=== PATIENT | female | born 1935 | race African-American/Black ===

== ENCOUNTER 2019-04-18 22:08 | Inpatient (IN) | payer MEDICARE, OTHER ==
[~2019-04-18] VITALS: Ht 154.9 cm; Wt 55.8 kg
--- NOTE | 2019-04-18 22:35 | NUR ---
PT BIB PRIVATE AMBULANCE FROM [facility] C/O INCREASE AGITATION. PT CALM AND RESTING IN BED 11. NAD NOTED. RESP EVEN AND UNLABORED. PT AOX2. PT ON MONITOR IN BED 11. WILL CONTINUE TO MONITOR.
[2019-04-18 22:45] LABS: BASOPHILS % (AUTO) 0.2 % (0.0-2.0); EOSINOPHILS % (AUTO) 7.3 % (0.0-6.0); HEMATOCRIT 32 % (33-45); HEMOGLOBIN 10.4 g/dL (11.5-14.8); LYMPHOCYTES # (AUTO) 0.8 /CMM (0.8-4.8); LYMPHOCYTES % (AUTO) 33.5 % (20.0-44.0); MEAN CORPUSCULAR HGB CONC 32 g/dl (31.0-36.0); MEAN CORPUSCULAR VOLUME 88 fL (82-100); MONOCYTES # (AUTO) 0.4 /CMM (0.1-1.30); MONOCYTES % (AUTO) 14.4 % (2.0-12.0); NEUTROPHILS # (AUTO) 1.1 /CMM (1.8-8.9); NEUTROPHILS % (AUTO) 44.6 % (43.0-81.0); PLATELET COUNT (AUTO) 247 /CMM (150-450); RED BLOOD CELL COUNT(AUTO) 3.66 MIL/uL (4.0-5.2); WHITE BLOOD COUNT (AUTO) 2.5 K/uL (4.3-11.0)
[2019-04-18 22:53] LABS: CALCIUM, SERUM 9.1 mg/dL (8.5-10.1); CARBON DIOXIDE 27 mmol/L (21-32); CHLORIDE 108 mmol/L (98-107); CREATININE 0.6 mg/dL (0.6-1.3); GLUCOSE 112 mg/dL (74-106); POTASSIUM 4.9 mmol/L (3.5-5.1); SODIUM SERUM 141 mmol/L (136-145); UREA NITROGEN, BLOOD 15 mg/dL (7-18)
--- NOTE | 2019-04-18 22:53 | NUR ---
PT UNABLE TO PROVIDE URINE AT THIS TIME.
[2019-04-18 22:58] LABS: ALANINE AMINOTRANSFERASE 13 U/L (12-78); ALKALINE PHOSPHATASE 109 U/L (46-116); ASPARTATE AMINOTRANSFERASE 18 U/L (15-37); BILIRUBIN,DIRECT 0.1 mg/dL (0.0-0.2); BILIRUBIN,TOTAL 0.3 mg/dL (0.2-1.0); TOTAL PROTEIN, SERUM 7.6 g/dL (6.4-8.2)
[2019-04-18 23:01] LABS: ACETAMINOPHEN 0 ug/ml (10-30); ALCOHOL, BLOOD < 3 mg/dL (0-0); SALICYLATE 0.4 mg/dL (2.8-20.0)
--- NOTE | 2019-04-18 23:40 | NUR ---
URINE COLLECTED AND SENT TO LAB
[2019-04-18 23:44] LABS: APPEARANCE,URINE Cloudy (CLEAR); BILIRUBIN,URINE Negative (NEGATIVE); BLOOD, URINE Moderate Ery/uL (NEGATIVE); COLOR,URINE Yellow (YELLOW); KETONES,URINE Negative (NEGATIVE); LEUKOCYTE ESTERASE ,URINE Moderate (NEGATIVE); NITRITE, URINE Negative (NEGATIVE); PROTEIN,URINE Negative (NEGATIVE); UGLUCOSE Negative (NEGATIVE); UROBILINOGEN,URINE 0.2 EU/dL (0.2)
[2019-04-19 00:05] LABS: BACTERIA,URINE Few /HPF (None Seen); RBC,URINE 21-50 /HPF (0-2); SQUAMOUS EPITHELIAL CELL,UR Few /HPF (None Seen); WBC,URINE 81-100 /HPF (0-3)
--- NOTE | 2019-04-19 00:11 | NUR ---
MICHAEL DYER DIGITAL MARKETING OFFICER PAGED.
[2019-04-19] MEDS ORDERED: NITROFURANTOIN/NITROFURAN MAC 100 MG CAPSULE PO ONE (00:30)
--- NOTE | 2019-04-19 00:56 | NUR ---
ART, REFRIGERATION MECHANIC HELPER AT BEDSIDE FOR EVAL
--- NOTE | 2019-04-19 01:15 | NUR ---
BED 218-B
[2019-04-19] MEDS ORDERED: NITROFURANTOIN/NITROFURAN MAC 100 MG CAPSULE ONE (02:08)
--- NOTE | 2019-04-19 02:45 | NUR ---
GAVE REPORT TO CHRISTOFER FOR PEDRO LUIS.
[2019-04-19 04:51] VITALS: BP 139/70
[2019-04-19] MEDS ORDERED: MAGNESIUM HYDROXIDE 30 ML UDC PO PRN ×2 (05:00→17:00)
[2019-04-19] MEDS ORDERED: TEMAZEPAM 7.5 MG CAPSULE PO PRN (05:00)
[2019-04-19] MEDS ORDERED: MAG HYDROX/AL HYDROX/SIMETH 30 ML UDC PO PRN (05:00)
[2019-04-19] MEDS ORDERED: BLOOD SUGAR DIAGNOSTIC 1 EACH STRIP IN ONE (05:00)
[2019-04-19] MEDS ORDERED: ACETAMINOPHEN 325 MG TABLET PO PRN ×2 (05:00→17:00)
[2019-04-19] MEDS ORDERED: AMLO5TAB9 PO (05:55)
[2019-04-19] MEDS ORDERED: CLOP75TA15 PO (05:55)
[2019-04-19] MEDS ORDERED: FAMO20TA8 PO (05:55)
--- NOTE | 2019-04-19 06:29 | NUR ---
GPS/SKILLED LABOR ADMISSION NOTES: RECEIVED 84 YR OLD FEMALE ON A 5150 HOLD FOR GD. PT. IS A/O X1. CONFUSED. UNCOOPERATIVE AT THIS TIME. PT. ORIENTED TO UNIT POLICY, PROTOCOLS, AND PROCEDURES. SAFETY ENVIRONMENT OBSERVED WITH CALL FERNANDEZ WITHIN REACH AT ALL TIMES. MEDICAL AND PSYCH . NOTIFIED OF PT. ADMISSION TO UNIT. FAMILY ALSO NOTIFIED OF PT. ADMISSION.
--- NOTE | 2019-04-19 07:30 | NUR ---
RN AM SHIFT NOTE PATIENT IN BED, CONFUSED . RN ORIENTED PATIENT TO SURROUNDINGS. ASSIST WITH EATING, PATIENT WAS HUNGRY. BED IN LOW POSITION, SIDE RAILS UP AND ENCOURANGED TO EXPRESS FEELINGS. CONTIUE TO MONITOR.
[2019-04-19 08:00] VITALS: BP 135/60
[2019-04-19] MEDS ORDERED: MIRT7.5T10 PO (08:06)
[2019-04-19] MEDS ORDERED: ACET-868 PO (08:06)
[2019-04-19] MEDS ORDERED: MAGN400O6 PO (08:06)
[2019-04-19] MEDS ORDERED: DOCU-141 PO (08:06)
[2019-04-19] MEDS ORDERED: CYAN-6 IM (08:06)
[2019-04-19] MEDS ORDERED: MULT-447 PO (08:06)
[2019-04-19] MEDS ORDERED: BISA10SU11 RC (08:06)
[2019-04-19] MEDS ORDERED: NA P133E RC (08:06)
--- NOTE | 2019-04-19 11:22 | NUR ---
SW contacted [facility] Address: [address], [place] [address] and spoke with [place] wellness coordinator [phone] who stated that pt is able to return once stable.
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
--- NOTE | 2019-04-19 12:04 | NUR ---
INITIAL DISCHARGE PLAN: Per daughter Hina [phone] she does not wish for pt to return to [facility] Address: [address], [place] [address] . ANDREW will help form a safe and proper discharge in collaboration with .
[2019-04-19] MEDS: LORAZEPAM 0.5 MG TABLET PO PRN (14:19)
--- NOTE | 2019-04-19 14:30 | NUR ---
RN NOTE PATIENT AGITATED, TRYING TO GET OUT OF BED, CONFUSED AND GETTING ANGRY. RN REORIENT PATIENT TO SURROUNINGS, ATTEMPTING TO ASSIST WITH FEEDING. PATIENT DOES NOT TRUST STAFF AND WANTS TO GET OUT OF BED, BED IN LOW POSITION. RN ATTEMPT TO CALM PATIENT AND ENSURE SAFETY. GAVE 1M LORAZEPAM PER D ORDER TO DECREASE AGITATION.
[2019-04-19 16:00] VITALS: BP 108/68
--- NOTE | 2019-04-19 16:59 | NUR ---
RN NOTE B12 RN CALLED NURSING FACILITY TO DETERMINE FREQUENCY OF B12 IM SHOT. AISHA SOTELO AT FACILITY VERBALIZED IM INJECTION IS GIVEN EVERY Monday, , , . RN ENDORSED NOTE TO PHARMACY AT [facility].
[2019-04-19] MEDS ORDERED: BISACODYL SUPP (10 MG) 10 MG/SUPP.RECT SUPP.RECT RC PRN (17:00)
[2019-04-19] MEDS: DOCUSATE SODIUM 100 MG CAPSULE PO SCH (17:00)
--- NOTE | 2019-04-19 17:07 | NUR ---
RN NOTE PATIENT WAS ASKED IF SHE WOULD TAKE STOOL SOFTENER, TOLD RN SHE WILL NOT TAKE IT . REFUSING MEDICATION AT THIS TIME.
[2019-04-19 20:00] VITALS: BP 123/58
[2019-04-19] MEDS: MIRTAZAPINE 15 MG TABLET PO SCH (22:00)
[2019-04-19] MEDS: FAMOTIDINE (20 MG) 20 MG TABLET PO SCH (22:00)
--- NOTE | 2019-04-19 22:07 | NUR ---
GPS RN NOTES: PATIENT REFUSED HER SCHEDULED MEDICATION MIRTAZAPINE 15 MG AND PEPCID 20 MG, PER PATIENT "I DON'T NEED ANY MEDICATION, FOR LONG ME AND HER (POINTING TO HER ROOMMATE) WILL HELP EACH OTHER". EXPLAINED TO PATIENT THE BENEFITS AND RISKS OF NON COMPLIANCE BUT PATIENT STILL REFUSED. WILL ENDORSE. WILL CONTINUE TO MONITOR.
[2019-04-20 08:00] VITALS: BP 130/71
[2019-04-20 08:05] LABS: BASOPHILS % (AUTO) 0.5 % (0.0-2.0); EOSINOPHILS % (AUTO) 4.8 % (0.0-6.0); HEMATOCRIT 30 % (33-45); HEMOGLOBIN 9.9 g/dL (11.5-14.8); LYMPHOCYTES # (AUTO) 0.8 /CMM (0.8-4.8); MEAN CORPUSCULAR HGB CONC 33 g/dl (31.0-36.0); MEAN CORPUSCULAR VOLUME 88 fL (82-100); MONOCYTES # (AUTO) 0.4 /CMM (0.1-1.30); NEUTROPHILS # (AUTO) 1.6 /CMM (1.8-8.9); NEUTROPHILS % (AUTO) 54.7 % (43.0-81.0); PLATELET COUNT (AUTO) 226 /CMM (150-450); RED BLOOD CELL COUNT(AUTO) 3.42 MIL/uL (4.0-5.2); WHITE BLOOD COUNT (AUTO) 2.9 K/uL (4.3-11.0)
[2019-04-20 08:31] LABS: ALBUMIN 2.8 g/dL (3.4-5.0); BILIRUBIN,TOTAL 0.5 mg/dL (0.2-1.0); CALCIUM, SERUM 8.7 mg/dL (8.5-10.1); CHOLESTEROL 158 mg/dL (<200); CREATININE 0.6 mg/dL (0.6-1.3); HDL CHOLESTEROL 59 mg/dL (40-60); LDL 98 mg/dL (0-99); POTASSIUM 3.9 mmol/L (3.5-5.1); TOTAL PROTEIN, SERUM 7.1 g/dL (6.4-8.2); TRIGLYCERIDES 39 mg/dL (30-150)
[2019-04-20] MEDS: DOCUSATE SODIUM 100 MG CAPSULE PO SCH ×2 (08:36→17:15)
[2019-04-20] MEDS: CLOPIDOGREL BISULFATE 75 MG TABLET PO SCH (08:36)
[2019-04-20] MEDS: AMLODIPINE BESYLATE 5 MG TABLET PO SCH (08:36)
[2019-04-20 16:00] VITALS: BP 103/56
[2019-04-20 20:00] VITALS: BP 115/52
[2019-04-20] MEDS: FAMOTIDINE (20 MG) 20 MG TABLET PO SCH (21:51)
[2019-04-20] MEDS: MIRTAZAPINE 15 MG TABLET PO SCH (21:51)
[2019-04-21 08:00] VITALS: BP 121/60
[2019-04-21] MEDS: AMLODIPINE BESYLATE 5 MG TABLET PO SCH (08:31)
[2019-04-21] MEDS: CLOPIDOGREL BISULFATE 75 MG TABLET PO SCH (08:31)
[2019-04-21] MEDS: DOCUSATE SODIUM 100 MG CAPSULE PO SCH ×2 (08:31→16:31)
[2019-04-21 16:00] VITALS: BP 136/67
[2019-04-21 20:00] VITALS: BP 138/64
[2019-04-21] MEDS: FAMOTIDINE (20 MG) 20 MG TABLET PO SCH (21:27)
[2019-04-21] MEDS: MIRTAZAPINE 15 MG TABLET PO SCH (21:27)
--- NOTE | 2019-04-21 22:58 | NUR ---
GPS RN NOTES: NOTED ON PATIENT'S RECORD THAT HER URINE CULTURE RESULTS PRESENTS MORGANELLA MORGANII. DR NICHOLAS PAGED TO VERIFY PATIENT'S NEED FOR ISOLATION. DR. NICHOLAS CALLED BACK AND STATED THAT WE DON'T USUALLY ISOLATE PATIENTS WITH MORGANELLA MORGANII, HOWEVER HE GAVE ORDERS TO START PATIENT ON LEVAQUIN 250 MG PO DAILY. NOTED AND CARRIED. WILL CONTINUE TO MONITOR PATIENT.
--- NOTE | 2019-04-21 23:30 | NUR ---
GPS RN NOTES: PATIENT HAS BEEN SLEEPING WHEN MEDICATION LEVAQUIN 250 MG WAS ABOUT TO BE ADMINISTERED. SHE HAS BEEN SLEEPING ON AND OFF HER ROOMMATE MAKES SOME NOISE IN THE ROOM WHICH MAKES HER WAKE UP. SO THE MEDICATION WAS SCHEDULED FOR 0900. WILL ENDORSE TO THE DAY SHIFT NURSE.
[2019-04-22] MEDS ORDERED: LEVOFLOXACIN (250MG) 250 MG TABLET PO SCH
[2019-04-22 08:00] VITALS: BP 127/60
[2019-04-22] MEDS: CLOPIDOGREL BISULFATE 75 MG TABLET PO SCH (08:42)
[2019-04-22] MEDS: LEVOFLOXACIN (250MG) 250 MG TABLET PO SCH (08:43)
[2019-04-22] MEDS: DOCUSATE SODIUM 100 MG CAPSULE PO SCH ×2 (08:43→17:02)
[2019-04-22] MEDS: AMLODIPINE BESYLATE 5 MG TABLET PO SCH (08:43)
[2019-04-22] MEDS ORDERED: CYANOCOBALAMIN 1,000 MCG/ML VIAL IM SCH (09:00)
[2019-04-22 16:00] VITALS: BP 130/71
[2019-04-22 19:55] VITALS: BP 127/60
[2019-04-22] MEDS: MIRTAZAPINE 15 MG TABLET PO SCH (21:02)
[2019-04-22] MEDS: FAMOTIDINE (20 MG) 20 MG TABLET PO SCH (21:02)
[2019-04-23 08:00] VITALS: BP 121/68
[2019-04-23] MEDS: LEVOFLOXACIN (250MG) 250 MG TABLET PO SCH (08:30)
[2019-04-23] MEDS: CLOPIDOGREL BISULFATE 75 MG TABLET PO SCH (08:30)
[2019-04-23] MEDS: AMLODIPINE BESYLATE 5 MG TABLET PO SCH (08:30)
[2019-04-23] MEDS: DOCUSATE SODIUM 100 MG CAPSULE PO SCH ×2 (08:30→17:48)
--- NOTE | 2019-04-23 10:39 | NUR ---
SW received a call from pts daughter Hina [phone] and ANDREW provided her with 5 SNF's contact information in [facility]. Daughter stated she would call and tour the facilities and let SW know which one she wishes for SW to refer her pt to.
[2019-04-23 16:00] VITALS: BP 116/72
[2019-04-23 20:27] VITALS: BP 113/60
[2019-04-23] MEDS: MIRTAZAPINE 15 MG TABLET PO SCH (21:07)
[2019-04-23] MEDS: FAMOTIDINE (20 MG) 20 MG TABLET PO SCH (21:07)
[2019-04-24 08:00] VITALS: BP 132/60
[2019-04-24] MEDS: CLOPIDOGREL BISULFATE 75 MG TABLET PO SCH (08:24)
[2019-04-24] MEDS: DOCUSATE SODIUM 100 MG CAPSULE PO SCH ×2 (08:24→16:34)
[2019-04-24] MEDS: LEVOFLOXACIN (250MG) 250 MG TABLET PO SCH (08:24)
[2019-04-24] MEDS: AMLODIPINE BESYLATE 5 MG TABLET PO SCH (08:26)
--- NOTE | 2019-04-24 08:54 | NUR ---
ANRDEW contacted pts daughter Hina [phone] and informed her psychiatrist has placed discharge order for Monday04/26/19. ANDREW informed her that if she doesn't have alternative placement for pt then pt will return to [facility]. Daughter stated that she was going to visit a SNF today and that she would get back to by the end of the day.
--- NOTE | 2019-04-24 14:00 | NUR ---
GROUP NOTE: SW encouraged pt to participate in group therapy on this present day to discuss "positive coping skills." Pt has Dementia and unable to engage in a meaningful conversation. Pt is only alert to her name. Pt unable to participate in a group discussion.
[2019-04-24 16:00] VITALS: BP 147/84
[2019-04-24 20:07] VITALS: BP_SYST 134; BP_SYST 146; BP_DIAS 76; BP_DIAS 77
[2019-04-24] MEDS: FAMOTIDINE (20 MG) 20 MG TABLET PO SCH (21:21)
[2019-04-24] MEDS: MIRTAZAPINE 15 MG TABLET PO SCH (21:22)
[2019-04-25 08:00] VITALS: BP 138/67
[2019-04-25] MEDS: CLOPIDOGREL BISULFATE 75 MG TABLET PO SCH (08:35)
[2019-04-25] MEDS: DOCUSATE SODIUM 100 MG CAPSULE PO SCH ×2 (08:35→16:23)
[2019-04-25] MEDS: LEVOFLOXACIN (250MG) 250 MG TABLET PO SCH (08:35)
[2019-04-25] MEDS: AMLODIPINE BESYLATE 5 MG TABLET PO SCH (08:36)
--- NOTE | 2019-04-25 08:42 | NUR ---
ANDREW contacted pts daughter Hina [phone] and informed her of pts PROBABLE CAUSE hearing on this present day and also discussed discharge plan. Daughter stated that she wishes for pt to return to [facility].
--- NOTE | 2019-04-25 08:43 | NUR ---
ANDREW contacted [facility] Address: [address], [place] [address] and spoke with Suellen, admissions assistant [phone] who agreed with pts discharge plan for tomorrow 04/26/19, Suellen requested clinicals be faxed to .
--- NOTE | 2019-04-25 10:05 | NUR ---
ANDREW faxed clinicals [facility] Address: [address], [place] [address] .
--- NOTE | 2019-04-25 13:56 | NUR ---
SW received a call from pts daughter Hina [phone] who requested SW fax SNF referral to [facility] Address: [address] [place] [address] for review.
--- NOTE | 2019-04-25 13:57 | NUR ---
SW fax SNF referral to [facility] [place] Address: [address] [place] [address] for review.
--- NOTE | 2019-04-25 15:56 | NUR ---
SW received a call from Monica, quality management coordinator at [facility] Address: [address] [place] [phone] stating pt has been accepted to the facility.
[2019-04-25 16:00] VITALS: BP 117/58
[2019-04-25 20:33] VITALS: BP 124/61
[2019-04-25] MEDS: MIRTAZAPINE 15 MG TABLET PO SCH (21:06)
[2019-04-25] MEDS: FAMOTIDINE (20 MG) 20 MG TABLET PO SCH (21:06)
[2019-04-26] MEDS: LORAZEPAM 0.5 MG TABLET PO PRN ×2 (05:45→13:33)
[2019-04-26 08:00] VITALS: BP 149/66
[2019-04-26 08:25] VITALS: BP 149/66
[2019-04-26] MEDS: AMLODIPINE BESYLATE 5 MG TABLET PO SCH (08:25)
[2019-04-26] MEDS: DOCUSATE SODIUM 100 MG CAPSULE PO SCH (08:25)
[2019-04-26] MEDS: CLOPIDOGREL BISULFATE 75 MG TABLET PO SCH (08:25)
[2019-04-26] MEDS: LEVOFLOXACIN (250MG) 250 MG TABLET PO SCH (08:25)
--- NOTE | 2019-04-26 09:48 | NUR ---
DISCHARGE PLAN: Pt discharging at 12:00pm via [facility] to [facility] Address: [address] [place] [address] . Pts daughter Hina [phone] has been notified and agrees with discharge plan. Pts mood is confused but pleasant with congruent affect. Pt denied visual/auditory hallucinations and denied suicidal/homicidal ideation. Pt will be under the care of Psychiatrist: Dr. Kavya Ken Address: [address] [place] [address] and Magazine Designer: Dr. Manjeet Enrique Address: [address] [place] [address] . The multidisciplinary exit care form was done, printed, signed, and given to the patient.
--- NOTE | 2019-04-26 13:33 | NUR ---
RN NOTE: PATIENT WAS ANXIOUS. PRN ATIVAN PO GIVEN.
--- NOTE | 2019-04-26 14:53 | NUR ---
CUSTOMS COMPLIANCE MANAGER NOTE: PATIENT IS A 84 YEAR OLD FEMALE DISCHARGED TO [facility] [address] [address] . PATIENT IS IN STABLE CONDITION. VSS. NO ACUTE DISTRESS NOTED. NO COMPLAINTS. COMPLIANT WITH MEDICATION MANAGEMENT. COOPERATIVE WITH PLAN OF CARE. PSYCHIATRIC TREATMENT PLANS MET. MEDICAL TREATMENT PLANS DEFERRED FOR CONTINUAL MONITORING. DENIES SI/HI VAH AT THE TIME OF DISCHARGE. WOUND PICTURES TAKEN AND DOCUMENTED IN CHART. EDUCATED PATIENT ABOUT AFTERCARE WITH COPY PROVIDED. RETURNED PERSONAL BELONGINGS TO PATIENT. MEDICATIONS RECONCILED WITH DR CASE AND DR NOWAK ALONG WITH PSYCHIATRIC DISCHARGE ORDERS. DISCHARGE PAPERWORK SIGNED. FOR FOLLOW UP WITH PSYCHIATRIST DR YESSENIA DERAS [address] YONATHAN MARY [address] [facility] [id number] WITHIN 1 WEEK. PATIENT LEFT THE [facility] AT 1340 VIA TRANSPORTATION.
== END 2019-04-26 13:40 | DRG 881 ==
LOC: ER 22:11 → GPS 04-19 03:16
PROVIDERS: ADMIT Psychiatry & Neurology Psychiatry; ATTEND Family Medicine
DX: F32.9 Major depressive disorder, single episode, unspecified (principal); N39.0 Urinary tract infection, site not specified; F29 Unspecified psychosis not due to a substance or known physiological condition; F03.90 Unspecified dementia, unspecified severity, without behavioral disturbance, psychotic disturbance, mood disturbance, and anxiety; I10 Essential (primary) hypertension; D64.9 Anemia, unspecified; E78.5 Hyperlipidemia, unspecified; Z91.19 Patient's noncompliance with other medical treatment and regimen; I25.10 Atherosclerotic heart disease of native coronary artery without angina pectoris; Z81.8 Family history of other mental and behavioral disorders; Z88.8 Allergy status to other drugs, medicaments and biological substances; F41.9 Anxiety disorder, unspecified; Z79.02 Long term (current) use of antithrombotics/antiplatelets; Z79.899 Other long term (current) drug therapy; Z73.9 Problem related to life management difficulty, unspecified; B96.89 Other specified bacterial agents as the cause of diseases classified elsewhere
CPT/HCPCS: 36415; 80048-TC; 80053-TC; 80061-TC; 80076-TC; 80305; 81000-TC; 82962-TC; 85025-TC; 87081-TC; 87086-TC; 87186-TC; 97530-TC; G0480; J3420